=== PATIENT | female | born 1965 | race Caucasian/White ===

== ENCOUNTER 2019-01-06 20:39 | Emergency (ER) | payer OTHER ==
[2019-01-06 20:47] VITALS: BP 121/83; PULSE 93; TEMP 98; BMI 29.7
--- NOTE | 2019-01-06 20:47 | PDOC ---
Rapid Medical Evaluation Time Seen by Provider: 01/06/19 20:44 Medical Evaluation: 01/06/19 20:45 This patient had brief in-person evaluation in triage cc: lower abdominal pain since 01/02 with frequency during urination and discomfort PE: NAD unlabored breathing non tender lower abdomen orders: u/a urine pregnanct This patient will proceed to ed for further evaluation Discharge Disposition - Diagnosis Dysuria - Referrals - Patient Instructions - Post Discharge Activity
[2019-01-06] MEDS ORDERED: SODIUM CHLORIDE 1,000 ML IV STA (22:23)
--- NOTE | 2019-01-06 22:23 | PDOC ---
History of Present Illness - General Chief Complaint: Pain, Acute Stated Complaint: ABD PAIN Time Seen by Provider: 01/06/19 20:44 History Source: Patient - History of Present Illness Initial Comments: 01/06/19 22:21 53 year old female c/o suprapubic pain, dysuria, and b/l flank pain x 3 days. + chills denies fever. Denies Nausea, vomiting, diarrhea PMHX: hypertension PCP: Dr. luis Past History - Past Medical History Allergies/Adverse Reactions: Allergies Allergy/AdvReac Type Severity Reaction Status Date / Time No Known Allergies Allergy Verified 01/06/19 22:58 Home Medications: Ambulatory Orders Cefuroxime Axetil [Cefuroxime] 500 mg PO BID #20 tablet 01/07/19 Phenazopyridine HCl [Pyridium] 100 mg PO TID #6 tablet 01/07/19 COPD: No - Suicide/Smoking/Psychosocial Hx Smoking History: Never smoked Hx Alcohol Use: No Drug/Substance Use Hx: No Review of Systems - Review of Systems Able to Perform ROS?: Yes Is the patient limited [place] proficient: No Constitutional: Yes: Chills. No: Symptoms Reported, See HPI, Diaphoresis, Fever , Loss of Appetite, Malaise, Night Sweats, Weakness, Weight Stable, Unintentional Wgt. Loss, Unexplained wgt Loss, Other ABD/GI: No: Symptoms Reported, See HPI, Abdominal Distended, Abd. Pain w/ defecation, Blood Streaked Bowels, Constipated, Diarrhea, Difficulty Swallowing , Nausea, Poor Appetite, Poor Fluid Intake, Rectal Bleeding, Vomiting, Indigestion, Abdominal cramping, Tarry Stools, Other : Yes: Burning, Dysuria, Flank Pain, Urgency *Physical Exam - Vital Signs Last Vital Signs Temp Pulse Resp BP Pulse Ox 98 F 93 H 20 121/83 97 01/06/19 20:42 01/06/19 20:42 01/06/19 20:42 01/06/19 20:42 01/06/19 20:42 - Physical Exam General Appearance: Yes: Appropriately Dressed Respiratory/Chest: positive: Lungs Clear, Normal Breath Sounds Cardiovascular: positive: Regular Rhythm, Regular Rate Gastrointestinal/Abdominal: positive: Normal Bowel Sounds, Soft, Other ( suprapubic tenderness) Musculoskeletal: positive: CVA Tenderness (b/l) Extremity: positive: Normal Capillary Refill, Normal Inspection Integumentary: positive: Normal Color, Dry, Warm Neurologic: positive: Fully Oriented, Alert, Normal Mood/Affect ED Treatment Course - LABORATORY CBC & Chemistry Diagram: 01/06/19 22:30 01/06/19 22:30 Progress Note - Progress Note Progress Note: A: pyelonephritis P; ua ucx cbc cmp *DC/Admit/Observation/Transfer Diagnosis at time of Disposition: Pyelonephritis - Discharge Dispostion Disposition: HOME - Prescriptions Prescriptions: Cefuroxime Axetil [Cefuroxime] 500 mg PO BID #20 tablet Phenazopyridine HCl [Pyridium] 100 mg PO TID #6 tablet - Referrals Referrals: ON STAFF,NOT [Primary Care Provider] - - Patient Instructions Printed Discharge Instructions: Kidney Infection Additional Instructions: Drink plenty of fluids Take ibuprofen every 6 hours as needed for pain You may take Pyridium for the burning of urination. it can turn year her urine orange and can make you sweat orange Take cefuroxime as prescribed Follow-up with your primary care doctor as soon as possible. You need to repeat urine test once your antibiotic is completed. We will call you if you're antibiotic needs to be changed. - Post Discharge Activity Forms/Work/School Notes: Back to Work
[2019-01-06 23:10] LABS: EPI CELLS 0.7 /HPF (0-5/HPF); HYALINE CASTS 3 /lpf (0-8); PH,URINE 6.5 (5.0-8.0); URINE APPEARANCE CLOUDY; URINE BACTERIA 1725.9 /hpf (NEGATIVE); URINE BILIRUBIN NEGATIVE (NEGATIVE); URINE COLOR YELLOW; URINE GLUCOSE (UA) NEGATIVE (NEGATIVE); URINE KETONE NEGATIVE (NEGATIVE); URINE LEUK ESTERASE 3+ (NEGATIVE); URINE NITRITE NEGATIVE (NEGATIVE); URINE PROTEIN 1+ (NEGATIVE); URINE RBC 138 /hpf (0-4); URINE UROBILINOGEN 0.2 mg/dL (0.2-1.0); URINE WBC 886 /hpf (0-5)
[2019-01-06] MEDS ORDERED: CEFTRIAXONE 1,000 MG in DEXTROSE 5%-WATER - 50 ML IVPB ONE (23:25)
[2019-01-06 23:26] LABS: HEMATOCRIT 40.7 % (32.4-45.2); HEMOGLOBIN 12.9 GM/dL (10.7-15.3); MCH 24.5 pg (25.7-33.7); MCHC 31.7 g/dl (32.0-36.0); MEAN CELL VOLUME 77.4 fl (80-96); PLATELET COUNT 359 K/MM3 (134-434); RBC 5.26 M/mm3 (3.60-5.2); WHITE BLOOD COUNT 9.4 K/mm3 (4.0-10.0)
[2019-01-06 23:35] LABS: ALBUMIN 4.3 g/dl (3.4-5.0); BILIRUBIN,TOTAL 0.4 mg/dL (0.2-1); CALCIUM 9.7 mg/dL (8.5-10.1); CREATININE 1.1 mg/dL (0.55-1.3); POTASSIUM 3.7 mmol/L (3.5-5.1); TOT PROT 8.6 g/dl (6.4-8.2)
[2019-01-06] MEDS ORDERED: CEFTRIAXONE 1 GM/50 ML BAG ONE (23:37)
== END 2019-01-07 00:42 | disposition home or self-care (01) ==
LOC: JER 20:39
PROC: 3E0337Z Introduction of Electrolytic and Water Balance Substance into Peripheral Vein, Percutaneous Approach (ICD-10-PCS; principal; 2019-01-06)
PROC: 3E03329 Introduction of Other Anti-infective into Peripheral Vein, Percutaneous Approach (ICD-10-PCS; 2019-01-06)
DX: N12 Tubulo-interstitial nephritis, not specified as acute or chronic (principal)
CPT/HCPCS: 36415; 80053; 81003; 85027; 87077; 87086; 87186; 96361; 96365; 99282-25; J7030

== ENCOUNTER 2021-06-27 00:59 | Emergency (ER) | payer OTHER ==
[2021-06-27 01:36] VITALS: BP 127/84; PULSE 68; TEMP 98.1; BMI 31.2
[2021-06-27] MEDS ORDERED: METHOCARBAMOL 500 MG TABLET PO ONE (02:55)
[2021-06-27] MEDS ORDERED: morphine SULFATE IMMEDIATE RELEASE 30 MG TAB PO PRN (02:55)
[2021-06-27] MEDS ORDERED: LIDOCAINE 5% TOPICAL PATCH TP ONE (02:56)
[2021-06-27 02:59] LABS: EPI CELLS >36 /uL (0-25.1); HYALINE CASTS 1 /uL (0-3.1); PH,URINE 5.5 (5.0-8.0); URINE APPEARANCE CLEAR; URINE BACTERIA 1043 /uL (0-1359); URINE BILIRUBIN NEGATIVE (NEGATIVE); URINE COLOR YELLOW; URINE GLUCOSE (UA) NEGATIVE (NEGATIVE); URINE KETONE NEGATIVE (NEGATIVE); URINE LEUK ESTERASE TRACE (NEGATIVE); URINE NITRITE NEGATIVE (NEGATIVE); URINE PROTEIN NEGATIVE (NEGATIVE); URINE RBC 4 /uL (0-23.9); URINE UROBILINOGEN 0.2 mg/dL (0.2-1.0); URINE WBC 32 /uL (0-25.8)
[2021-06-27] MEDS ORDERED: LIDOCAINE 5% TOPICAL PATCH ONE (03:37)
[2021-06-27] MEDS ORDERED: METHOCARBAMOL 500 MG TABLET ONE (03:37)
[2021-06-27] MEDS ORDERED: LIDOCAINE PATCH REMOVAL MC SCH (22:00)
== END 2021-06-27 06:00 | disposition home or self-care (01) ==
LOC: JER 00:59
DX: M51.26 Other intervertebral disc displacement, lumbar region (principal)
CPT/HCPCS: 72131-TC; 81003; 87086; 99284-25

== ENCOUNTER 2022-11-03 20:43 | Emergency (ER) | payer OTHER ==
[2022-11-03 20:47] VITALS: BP 153/81; PULSE 69; RESP 18; TEMP 98; BMI 29.6
== END 2022-11-03 23:19 | disposition home or self-care (01) ==
LOC: JER 20:43 → JERFT 20:43 → JER 23:19
DX: M79.672 Pain in left foot (principal)
CPT/HCPCS: 73630-TC-LT; 99283-25